=== PATIENT | female | born 1970 | race Caucasian/White ===

== ENCOUNTER → 2017-06-22 13:22 | Outpatient (CLI) | payer OTHER ==
[2017-06-27 04:15] LABS: IMMUNOGLOBULIN E 36 IU/mL (0-100)
== END | disposition home or self-care (01) ==
LOC: D.RT 13:22 → EDBD 13:22 → D.RT 14:00
PROVIDERS: Internal Medicine Pulmonary Disease
DX: J45.991 Cough variant asthma (principal)

== ENCOUNTER → 2018-01-19 07:22 | Outpatient (CLI) | payer OTHER ==
[2018-01-19 07:53] LABS: BASOPHILS 0.2 % (0-2); EOSINOPHILS 2.3 % (0-7); HEMATOCRIT 38.4 % (36.0-48.0); HEMOGLOBIN 12.6 g/dL (12-16); LYMPHOCYTES 28.9 % (15-50); MCH 30.7 pg (26.0-34.0); MCHC 32.8 g/dL (31.0-37.0); MCV 93.7 fL (80.0-100.0); MEAN PLATELET VOLUME 8.8 fL (7.4-10.4); MONOCYTES 7.9 % (2-11); NEUTROPHILS 60.7 % (40-80); PLATELET COUNT 211 10x3/uL (130-400); RDW 13.2 % (11.5-14.5); WBC 4.3 10x3/uL (4.8-10.8)
== END | disposition home or self-care (01) ==
LOC: D.RAD 07:22
PROVIDERS: Internal Medicine Pulmonary Disease
DX: J45.991 Cough variant asthma (principal); K21.9 Gastro-esophageal reflux disease without esophagitis